=== PATIENT | male | born 1955 | race Caucasian/White ===

== ENCOUNTER → 2019-03-16 | Emergency (ER) | payer SELFPAY | LOC: ER 01:52 | DX: T17.1XXA Foreign body in nostril, initial encounter (principal); X58.XXXA Exposure to other specified factors, initial encounter; Y93.89 Activity, other specified; Y92.89 Other specified places as the place of occurrence of the external cause; Y99.8 Other external cause status; Z53.21 Procedure and treatment not carried out due to patient leaving prior to being seen by health care provider ==

== ENCOUNTER 2019-03-28 12:56 | Emergency (ER) | payer MEDICAID, OTHER ==
[~2019-03-28] VITALS: Ht 172.7 cm; Wt 81.6 kg
[2019-03-28 13:40] VITALS: BP 134/87
== END 2019-03-28 14:45 | disposition home or self-care (01) ==
LOC: ER 12:59
DX: S01.81XD Laceration without foreign body of other part of head, subsequent encounter (principal); X58.XXXD Exposure to other specified factors, subsequent encounter